=== PATIENT | male | born 1990 | race Caucasian/White ===

== ENCOUNTER 2018-07-15 10:35 | Emergency (ER) | payer SELFPAY ==
[~2018-07-15] VITALS: Ht 188 cm; Wt 77.6 kg
--- NOTE | 2018-07-15 10:44 | NUR ---
Dr Mcdonald at the bedside for MSE.
[2018-07-15] MEDS ORDERED: PROCHLORPERAZINE EDISYLATE 10 MG/2 ML VIAL IM ONE (11:00)
[2018-07-15] MEDS ORDERED: TETRACAINE HCL 0.5% OPHT DROP 2 ML BOTTLE OP ONE (11:00)
[2018-07-15] MEDS ORDERED: TETRACAINE HCL 0.5% OPHT DROP 2 ML BOTTLE ONE (11:01)
[2018-07-15] MEDS ORDERED: PROCHLORPERAZINE EDISYLATE 10 MG/2 ML VIAL ONE (11:06)
[2018-07-15] MEDS ORDERED: ACETAMINOPHEN 325 MG TABLET PO ONE (11:15)
[2018-07-15] MEDS ORDERED: IBUPROFEN 600 MG TABLET PO ONE (11:15)
[2018-07-15] MEDS ORDERED: ACETAMINOPHEN 325 MG TABLET ONE (11:24)
[2018-07-15] MEDS ORDERED: IBUPROFEN 600 MG TABLET ONE (11:24)
--- NOTE | 2018-07-15 12:01 | NUR ---
Patient discharged to home in stable conditon. Written and verbal after care instructions given. Patient verbalizes understanding of instructions.
[2018-07-15 12:02] VITALS: BP 104/67
== END 2018-07-15 12:03 | disposition home or self-care (01) ==
LOC: ER 10:35
DX: S01.01XA Laceration without foreign body of scalp, initial encounter (principal); R51 Headache; W22.8XXA Striking against or struck by other objects, initial encounter; Y93.89 Activity, other specified; Y92.89 Other specified places as the place of occurrence of the external cause; Y99.8 Other external cause status
CPT/HCPCS: 70450; 96372; 99284; A4663; J0780